=== PATIENT | female | born 1960 | race Two or more races ===

== ENCOUNTER 2023-05-09 13:04 | Emergency (ER) | payer OTHER ==
[~2023-05-09] VITALS: Ht 162.6 cm; Wt 79.4 kg
[2023-05-09 14:01] LABS: BASOPHILS % (AUTO) 0.5 % (0.0-2.0); EOSINOPHILS # (AUTO) 0.1 K/uL (0.0-0.7); EOSINOPHILS % (AUTO) 0.8 % (0.0-6.0); HEMATOCRIT 43 % (33-45); HEMOGLOBIN 13.8 g/dL (11.5-14.8); LYMPHOCYTES # (AUTO) 0.7 K/uL (0.8-4.8); LYMPHOCYTES % (AUTO) 9.1 % (20.0-44.0); MEAN CORPUSCULAR HEMOGLOBIN 29 PG (26.0-33.0); MEAN CORPUSCULAR HGB CONC 32 g/dl (31.0-36.0); MEAN CORPUSCULAR VOLUME 90 fL (82-100); MONOCYTES # (AUTO) 0.4 K/uL (0.1-1.30); MONOCYTES % (AUTO) 4.7 % (2.0-12.0); NEUTROPHILS # (AUTO) 6.9 K/uL (1.8-8.9); NEUTROPHILS % (AUTO) 84.9 % (43.0-81.0); PLATELET COUNT (AUTO) 191 K/uL (150-450); RED BLOOD CELL COUNT(AUTO) 4.75 MIL/uL (4.0-5.2); RED CELL DISTRIBUTION WIDTH 14.4 % (11.5-15.0); WHITE BLOOD COUNT (AUTO) 8.1 K/uL (4.3-11.0)
[2023-05-09] MEDS ORDERED: ESOM40CA52 PO (14:05)
[2023-05-09] MEDS ORDERED: ALBU18HF2 IH (14:05)
[2023-05-09] MEDS ORDERED: NAPR-1009 PO (14:05)
[2023-05-09] MEDS ORDERED: ACETAMINOPHEN ES 500 MG TABLET PO ONE (14:30)
[2023-05-09] MEDS ORDERED: IV NS 0.9% 1,000 ML BAG IV ONE (14:30)
[2023-05-09 14:35] LABS: CALCIUM, SERUM 9.3 mg/dL (8.5-10.1); CARBON DIOXIDE 21 mmol/L (21-32); CHLORIDE 103 mmol/L (98-107); CREATININE 0.6 mg/dL (0.6-1.3); GLUCOSE 105 mg/dL (74-106); POTASSIUM 3.7 mmol/L (3.5-5.1); SODIUM SERUM 134 mmol/L (136-145); UREA NITROGEN, BLOOD 8 mg/dL (7-18)
[2023-05-09] MEDS ORDERED: ACETAMINOPHEN ES 500 MG TABLET ONE (14:40)
[2023-05-09 14:48] LABS: ALANINE AMINOTRANSFERASE 60 U/L (12-78); ALBUMIN 3.9 g/dL (3.4-5.0); ALKALINE PHOSPHATASE 125 U/L (46-116); ASPARTATE AMINOTRANSFERASE 34 U/L (15-37); BILIRUBIN,DIRECT 0.1 mg/dL (0.0-0.2); BILIRUBIN,TOTAL 0.4 mg/dL (0.2-1.0); NT-PRO BNP 47 pg/mL (0-125)
[2023-05-09 16:35] LABS: APPEARANCE,URINE CLEAR (CLEAR); BILIRUBIN,URINE NEGATIVE (NEGATIVE); BLOOD, URINE 1+ Ery/uL (NEGATIVE); COLOR,URINE YELLOW (YELLOW); KETONES,URINE NEGATIVE (NEGATIVE); LEUKOCYTE ESTERASE ,URINE NEGATIVE (NEGATIVE); NITRITE, URINE NEGATIVE (NEGATIVE); PROTEIN,URINE TRACE mg/dl (NEGATIVE); UGLUCOSE NEGATIVE (NEGATIVE)
[2023-05-09 17:21] LABS: ADD URINE CULTURE NO; BACTERIA,URINE 0 /HPF (None Seen); MUCUS,URINE Few /LPF (None Seen); WBC,URINE 0-2 /HPF (0-3)
[2023-05-09] MEDS ORDERED: IBUP-1955 PO (18:32)
[2023-05-09] MEDS ORDERED: BENZ-13 PO (18:32)
[2023-05-09] MEDS ORDERED: ACET-2605 PO (18:32)
[2023-05-09 19:28] VITALS: BP 145/77; TEMP 99.3; O2SAT 97
== END 2023-05-09 19:32 | disposition home or self-care (01) ==
LOC: ER 13:09
DX: J11.1 Influenza due to unidentified influenza virus with other respiratory manifestations (principal); R50.9 Fever, unspecified; R00.0 Tachycardia, unspecified; J45.909 Unspecified asthma, uncomplicated; Z20.822 Contact with and (suspected) exposure to COVID-19
CPT/HCPCS: 99285; 96360; 71045; 96361; 87426; 93005; 87804 ×2; 85025; 80048; 87040 ×2; 87086; 83605; 80076; 81001; 36415; 87420; 84484; 83880; J7030 ×2; A4223